=== PATIENT | male | born 1950 | race Hispanic/Latino ===

== ENCOUNTER 2022-10-13 14:24 | Emergency (ER) | payer OTHER ==
--- OUTSIDE RECORDS SUMMARY | 2022-10-13 14:27 | XMS REPORT | Continuity of Care Document ---
:1950 Author Organization [facility] t Address [address] [place] [address] [place] [id number] Care Team Providers Name Role Phone Snow Guillaume Attending Clinician Unavailable Snow Guillaume Admitting Clinician Unavailable KATHY ALVAREZ Admitting Clinician Unavailable Payers Payer Name Policy Type Policy Number Effective Date Expiration Date S ource Problems This patient has no known problems. Allergies, Adverse Reactions, Alerts Allergy Allergy Status Severity Reaction(s) Onset Inactive Treating Comm ents Source Name Type Date Date Clinician No Known DA [facility] [place] [facility] No Known DA [facility] [place] [facility] No Known DA Active [facility] [place] [facility] No Known DA Active [facility] [place] [facility] Medications This patient has no known medications. Procedures This patient has no known procedures. Encounters Start End Encounter Admission Attending Care Care Encounter Source Date/Time Date/Time Type Type Clinicians Facility Department ID 2020-08-15 Inpatient CARYN Gusman ADMI [id number] [facility] 10:00:00 [place] [facility] [place] [facility] 2020-07-27 2020-07-27 Outpatient CARYN Gusman RADI [id number] [facility] 13:25:00 13:25:00 [facility] [place] [facility] Results Test Description Test Time Test Comments Results Result [facility] e Comments - XR FLUORO NDL 2020-07-30 08[facility]35[facility] 1950 Sex: M Patient Name: MEG GORDON Unit No: [id number] EXAMS: CPT CODE: [id number] XR FLUORO NDL [id number] FLUOROSCOPICALLY GUIDED RIGHT HIP INTRA-ARTICULAR MARCAINE INJECTION COMMENT: After informed consent was obtained a 25-gauge needle is inserted into the right hip joint under fluoroscopic control using sterile technique. 3 mL of Isovue-300 is instilled into the joint. This is followed by injection of 6 mL of Marcaine. The patient tolerated the procedure well. 0.5 minutes of fluoroscopy time was used on this exam. at 0835 Reported and signed by: Shayan Mayes MD CC: Snow Guillaume MD Technologist: Maryam Chiu RT.(R) Transcribed D/ (0835) t.[email or web address] [facility] NAME: MEG GORDON [address] PHYS: Snow Anderson MD : 1950 AGE: 69 SEX: M [place], [place] [address] LOC: Y.RAD PHONE #: [phone] EXAM DATE: 07/27/2020 STATUS: DEP CLI FAX #: [phone] RAD #: D/C DT PAGE 1 Signed Report Patient Name: MEG GORDON Unit No: [id number] EXAMS: CPT CODE: [id number] XR FLUORO NDL [id number] (Continued) Orig Print D/T: S: 07/30/2020 (0838) [facility] NAME: MEG GORDON [address] [facility] PHYS: Snow Anderson MD : 1950 AGE: 69 SEX: M [place], [place] [address] LOC: Y.RAD PHONE #: [phone] EXAM DATE: 07/27/2020 STATUS: DEP CLI FAX #: [phone] RAD #: D/C DT PAGE 2 Signed Report
[2022-10-13] MEDS ORDERED: MORPHINE 4 MG/ML SYR ONE (16:57)
--- NOTE | 2022-10-13 17:55 | RAD REPORT ---
EXAM DESCRIPTION: RAD - Hip Right 2 View - 10/13/2022 5:49 pm CLINICAL HISTORY: PAIN COMPARISON: <Comparisons> FINDINGS: There is severe osteoarthritis of the right hip with [id number]. No acute fracture or di slocation.
[2022-10-13 18:19] VITALS: TEMP 97.8; O2SAT 100
[2022-10-13 18:20] VITALS: BP 140/88
--- NOTE | 2022-10-14 17:46 | EDPHYS ---
Physician Documentation [facility] Name: Javier Valenzuela Age: 71 yrs Sex: Male : 1950 Arrival Date: 10/13/2022 Time: 14:24 Bed DX5 Private MD: ED Physician Lauren Bolden HPI: 10/13 17:21 R hip pain for several years, got worse 6 weeks ago. Had Xr done by PCP with no acute ci findings. On Meloxicam, flexeril with no improvement. Completed medrol dose back 3 days ago with no improvement. Reports he twisted his right leg and slid to the ground a few days ago and pain has been worse. . Historical: - Allergies: 14:46 No Known Allergies; mb9 - Home Meds: 14:46 omeprazole Oral [Active]; Cyclobenzaprine Oral [Active]; mb9 - PMHx: 14:46 None; mb9 - PSHx: 14:46 None; mb9 - Immunization history:: Adult Immunizations up to date. - Social history:: Smoking status: Patient denies any tobacco usage or history of. Vital Signs: 14:44 BP 139 / 95; Pulse 72; Resp 18; Temp 97.8(O); Pulse Ox 100% on R/A; Weight 86.18 kg; mb9 Height 5 ft. 6 in. ; Pain 5/10; 17:45 BP 140 / 88; Pulse 84; Resp 18; Pulse Ox 100% on R/A; Pain 2/10; mb9 14:44 Body Mass Index 30.67 (86.18 kg, 167.64 cm) mb9 14:44 Pain Scale: Adult mb9 17:45 Pain Scale: Adult mb9 MDM: 14:49 Patient medically screened. ci 17:26 Patient medically screened. ci 10/13 16:24 Order name: Hip Right 2 View XRAY cm10 Administered Medications: 16:50 Drug: morphine IM 4 mg Route: IM; Site: left deltoid; mb9 Disposition Summary: 10/13/22 17:26 Discharge Ordered Location: Home ci Problem: an acute exacerbation ci Symptoms: have improved ci Condition: Stable ci Diagnosis - Low back pain - Acute on chronic low back pain with sciatica ci Followup: ci - With: Private Physician - When: 2 - 3 days - Reason: Re-evaluation by your physician Discharge Instructions: - Discharge Summary Sheet ci - Acute Back Pain, Adult ci Forms: - Medication Reconciliation Form ci - Thank You Letter ci - Patient Portal Instructions ci - Leadership Thank You Letter ci Prescriptions: - acetaminophen-codeine 300-30 mg Oral tablet - take 1 tablet by ORAL route every 6 hours for 3 days as needed for pain; 12 ci tablet; Refills: 0, Dispense as Written Signatures: Dispatcher [employer] Desiree Hoffman RN RN mb9 Doirs Chaidez RN RN cm10 Lauren Bolden Corrections: (The following items were deleted from the chart) 17:32 17:26 Pain in right hip ci ci
--- NOTE | 2022-10-14 17:46 | ER ---
Nurse's Notes [facility] Name: Javier Valenzuela Age: 71 yrs Sex: Male : 1950 Arrival Date: 10/13/2022 Time: 14:24 Bed DX5 Private MD: Diagnosis: Low back pain-Acute on chronic low back pain with sciatica Presentation: 10/13 14:44 Chief complaint: Patient states: "For the past 1-2 months, my right leg and lower back mb9 has been hurting me. Today, I slipped and it made it hurt even worse and isn't tolerable anymore.". Coronavirus screen: Vaccine status: Patient reports receiving the 2nd dose of the covid vaccine. Ebola Screen: No symptoms or risks identified at this time. Initial Sepsis Screen: Does the patient meet any 2 criteria? No. Patient's initial sepsis screen is negative. Does the patient have a suspected source of infection? No. Patient's initial sepsis screen is negative. Risk Assessment: Do you want to hurt yourself or someone else? Patient reports no desire to harm self or others. Onset of symptoms was October 13, 2022. 14:44 Method Of Arrival: Ambulatory mb9 14:44 Acuity: IFEANYI 4 mb9 Triage Assessment: 14:48 General: Appears in no apparent distress. Behavior is calm, cooperative. Neuro: mb9 Padilla Agitation-Sedation Scale (RASS): 0 - Alert and Calm. Respiratory: Airway is patent Respiratory effort is even, unlabored, Respiratory pattern is regular, symmetrical. Derm: Skin is pink, warm \\T\\ dry. Musculoskeletal: Range of motion: intact in all extremities, Reports pain in back and right leg. Historical: - Allergies: 14:46 No Known Allergies; mb9 - Home Meds: 14:46 omeprazole Oral [Active]; Cyclobenzaprine Oral [Active]; mb9 - PMHx: 14:46 None; mb9 - PSHx: 14:46 None; mb9 - Immunization history:: Adult Immunizations up to date. - Social history:: Smoking status: Patient denies any tobacco usage or history of. Screenin:50 [facility] ED Fall Risk Assessment (Adult) History of falling in the last 3 months, mb9 including since admission No falls in past 3 months (0 pts) Confusion or Disorientation No (0 pts) Intoxicated or Sedated No (0 pts) Impaired Gait No (0 pts) Mobility Assist Device Used No (0 pt) Altered Elimination No (0 pt) Score/Fall Risk Level 0 - 2 = Low Risk Oriented to surroundings, Maintained a safe environment, Educated pt \\T\\ family on fall prevention, incl call for assistance when getting out of bed. Abuse screen: Denies threats or abuse. Nutritional screening: No deficits noted. Tuberculosis screening: No symptoms or risk factors identified. Assessment: 16:50 Reassessment: No changes from previously documented assessment. Patient and/or family mb9 updated on plan of care and expected duration. Pain level reassessed. Patient is alert, oriented x 3, equal unlabored respirations, skin warm/dry/pink. Vital Signs: 14:44 BP 139 / 95; Pulse 72; Resp 18; Temp 97.8(O); Pulse Ox 100% on R/A; Weight 86.18 kg; mb9 Height 5 ft. 6 in. ; Pain 5/10; 17:45 BP 140 / 88; Pulse 84; Resp 18; Pulse Ox 100% on R/A; Pain 2/10; mb9 14:44 Body Mass Index 30.67 (86.18 kg, 167.64 cm) mb9 14:44 Pain Scale: Adult mb9 17:45 Pain Scale: Adult mb9 ED Course: 14:27 Patient arrived in ED. im 14:44 Arm band placed on. mb9 14:46 Triage completed. mb9 14:49 Lauren Bolden is Attending Physician. ci 16:50 Bed in low position. Call light in reach. Client placed on continuous cardiac and pulse mb9 oximetry monitoring. NIBP monitoring applied. 16:50 No provider procedures requiring assistance completed. Patient did not have IV access mb9 during this emergency room visit. 17:51 Hip Right 2 View XRAY In Process Unspecified. EDMS Administered Medications: 16:50 Drug: morphine IM 4 mg Route: IM; Site: left deltoid; mb9 Medication: 16:51 VIS not applicable for this client. mb9 Outcome: 17:26 Discharge ordered by . ci 17:45 Discharged to home ambulatory, with family. mb9 17:45 Condition: stable 17:45 Discharge instructions given to patient, Instructed on discharge instructions, follow up and referral plans. Demonstrated understanding of instructions, follow-up care, medications, Prescriptions given X 1. 17:45 Patient left the ED. mb9 Signatures: Dispatcher [employer] Desiree Hoffman RN RN mb9 Mary Askew Chizite ci
== END 2022-10-13 17:45 | disposition home or self-care (01) ==
LOC: ER 14:24
DX: M54.40 Lumbago with sciatica, unspecified side (principal)
CPT/HCPCS: 96372; 99284